=== PATIENT | female | born 1955 | race Asian ===

== ENCOUNTER 2017-07-31 13:32 | Outpatient (CLI) | payer BC | END 2017-07-31 13:33 | disposition home or self-care (01) | LOC: BICULT 13:32 | PROVIDERS: ATTEND Family Medicine | DX: N60.01 Solitary cyst of right breast; R92.8 Other abnormal and inconclusive findings on diagnostic imaging of breast ==

== ENCOUNTER 2018-05-12 13:39 | Outpatient (CLI) | payer BC ==
--- NOTE | 2018-05-12 16:20 | ULT ---
RIGHT BREAST ULTRASOUND LIMITED: History: 62-year-old female presents for follow up evaluation of the right breast at 3 o'clock. FINDINGS: In the 3 o'clock region of the right breast is again noted to be a cyst measuring 0.8 x 1.5 x 0.6 cm in size, stable from the prior study of 12-24-16. This corresponds to the area of parenchymal density asymmetry at 3 o'clock on mammogram. IMPRESSION: Stable cyst in the right breast 3 o'clock 2 cm from the nipple. This corresponds to the parenchymal d ensity asymmetry on mammogram. BIRADS category 2 - benign findings. Continued annual follow up mammography. POS: OFF
== END 2018-05-12 13:40 | disposition home or self-care (01) ==
LOC: BICMAMMO 13:39
PROVIDERS: ATTEND Family Medicine
DX: R92.8 Other abnormal and inconclusive findings on diagnostic imaging of breast (principal); N64.89 Other specified disorders of breast; N60.01 Solitary cyst of right breast
CPT/HCPCS: 77066; G0279

== ENCOUNTER 2019-07-05 17:50 | Inpatient (IN) | payer BC ==
[2019-07-05] MEDS ORDERED: Acetaminophen 325 MG TAB PO PRN (18:00)
[2019-07-05] MEDS ORDERED: Ondansetron PF 4 MG/2 ML Vial IVP PRN (18:00)
[2019-07-05] MEDS ORDERED: Labetalol HCl 100 MG/20 ML VIAL SLOW IVP PRN (18:00)
[2019-07-05] MEDS ORDERED: niCARdipine 25 MG in Sodium Chloride 0.9% 250 ML 240 ML IVPB PRN (18:00)
[2019-07-05] MEDS ORDERED: Acetaminophen/Codeine 30-300mg Tablet PO PRN (18:24)
[2019-07-05 18:43] VITALS: BMI 25.1
[2019-07-05 18:45] LABS: #Basophils 0.1 thou/uL (0.0-0.2); #Lymphocytes 1.1 thou/uL (1.20-3.40); #Monocytes 0.2 thou/uL (0.11-0.59); #Neutrophils 6.6 thou/uL (1.40-6.50); %Basophils 0.7 % (0.0-1.0); %Eosinophils 0.3 % (0.0-10.0); %Lymphocytes 13.4 % (21.0-51.0); %Monocytes 2.8 % (0.0-10.0); %Neutrophils 82.8 % (42.0-75.0); Hemoglobin 15.9 g/dL (12.0-16.0); Mean Corpuscular HGB CONC 34.7 g/dL (32.0-36.0); Mean Corpuscular Hemoglobin 33.3 pg (27.0-31.0); Mean Platelet Volume 7.4 fL (7.4-10.4); Platelet Count 255 thou/uL (130-400); RBC Distribution Width 10.6 % (11.5-14.5); Red Blood Cell (RBC) Count 4.76 mill/uL (4.20-5.40); White Blood Cell (WBC) Count 7.9 thou/uL (4.8-10.8)
[2019-07-05 18:51] LABS: INR-International Normal Ratio 0.9; PTT 30.5 SEC (22.9-36.1); Prothrombin Time 12.1 SEC (12.0-14.7)
[2019-07-05 19:05] LABS: Anion Gap 11 mmol/L (10-20); BUN (Urea Nitrogen) 10 mg/dL (9.8-20.1); Calc. Creatinine Clearance 87 mL/min (70-130); Calcium 9.7 mg/dL (7.8-10.44); Carbon Dioxide 26 mmol/L (23-31); Chloride 108 mmol/L (98-107); Estimated GFR-MDRD 88; Glucose 103 mg/dL (80-115); Potassium 3.7 mmol/L (3.5-5.1); Sodium 141 mmol/L (136-145)
--- NOTE | 2019-07-05 20:22 | MRI ---
MR angiogram of the head: 07/05/2019 COMPARISON: None HISTORY: Acute intracranial hemorrhage TECHNIQUE: 3-D noncontrast enhanced time of flight MR angiography of the head obtained. FINDINGS: No prior imaging is available. Thus, the nature of the patient's intracranial hemorrhage is uncertain. Antegrade blood flow is noted within the imaged distal vertebral arteries. The basilar artery and its branches appear patent with no saccular aneurysm, high-grade stenosis, or vascular occ lusion involving the posterior circulation. Distal branches of bilateral posterior cerebral arteries are not well assessed. The imaged extracranial ICA appears patent bilaterally. The M1 segment appears patent bilaterally and the MCA bifurcation appears within normal limits. The A 1 segment appears unremarkable bilaterally. The region of the anterior communicating artery and the distal VICKY branches appear grossly unremarkable. No central vascular occlusion, high-grade stenosis, or saccular aneurysm. Detailed assessment of the distal VICKY and MCA branches is somewhat technically limited. IMPRESSION: No acute findings. Please see above discussion.
--- NOTE | 2019-07-05 20:33 | MRI ---
Brain MRI with and without contrast: 07/05/2019 COMPARISON: None HISTORY: Intracranial hemorrhage TECHNIQUE: Multiplanar multisequence MR imaging of the brain is obtained with and without contrast FINDINGS: The diffusion weighted imaging demonstrates no evidence for acute infarction. There is a intra-axial lesion within the posterior left frontoparietal region at the level of the jennifer angie measuring 2.5 x 5.0 cm. It demonstrates blooming artifact peripherally on the gradient echo imaging, consistent with intracranial hemorrhage. There is a small amount of surrounding vasogenic ed geoff. The postcontrast imaging demonstrates no associated enhancing lesion. The imaged paranasal sinuses/mastoid air cells appear grossly unremarkable. There is questionable trace posterior subdural blood bilaterally in the parietal regions versus artif act. Head CT would be the study of choice to assess for possible trace amount of subdural blood bilaterally. There are a few scattered foci of increased T2/FLAIR signal within the subcortical white matter near the vertex in the left frontal region. Regional bone marrow signal intensity appears grossly unremarkable. Arterial flow voids at the axial level of the skull base appear unremarkable on the T2-weighted imagi ng. IMPRESSION: Intra-axial hematoma near the vertex posteriorly on the left. No associated enhancing mas s lesion. Recommend follow-up MRI with and without contrast in 3-4 weeks following resolution of the hematoma to evaluate for an underlying obscured lesion. There is questionable trace subdural blood in the posterior parietal regions versus artifact for whic h CT examination of the head may be beneficial for further assessment.
--- NOTE | 2019-07-06 03:36 | HP ---
HISTORY OF PRESENT ILLNESS: The patient is a 64-year-old female with a history of hyperlipidemia, otherwise healthy, who presented to the [facility] Emergency Department on 07/05/2019 for acute onset right-sided weakness. The patient reports she was getting out of shower around 1400 this afternoon when she developed initially some sensation changes in the right upper extremity, which progressed to significant right-sided weakness RUE>RLE. She was evaluated with a noncontrast head CT upon arrival to the emergency department and found to have a moderate-size left upper cerebral acute intracranial hemorrhage. She denies any recent trauma. Does not take any blood thinners or chen-xfx-[id number] aspirin and was not hypertensive. I visited the patient at the bedside. She is awake, alert, and had good strength on the left side. She had noted dense right-sided hemiparesis in the right upper extremity greater than right lower extremity. PAST MEDICAL HISTORY: Hyperlipidemia. PAST SURGICAL HISTORY: Prior cervical fusion. SOCIAL HISTORY: The patient lives at home. She is . She does not smoke , drink, or use any drugs. ALLERGIES: SHE HAS NO KNOWN DRUG ALLERGIES. CURRENT MEDICATION LIST: Atorvastatin 10 mg tab one tablet p.o. daily. REVIEW OF SYSTEMS: Per HPI. PHYSICAL EXAMINATION: GENERAL: On exam, the patient is sitting comfortably in the bed, in no acute distress. HEENT: Head, normocephalic and atraumatic. Eyes, PERRLA. Extraocular movements intact. ENT, oral mucosa is pink, intact, and moist. She has normal voice. No dysarthria is noted. NECK: Nontender. Free active range of motion. No meningismus or nuchal rigidity. CARDIAC: Regular rate and rhythm. MUSCULOSKELETAL: Symmetric pulses. No obvious deformities. She has a dense right-sided neck paresis with no motor function appreciated in the right upper extremity and significant drift in the right lower extremity. NEUROLOGIC: A and O x4. No cranial nerve deficits. Significant right-sided weakness as noted in the musculoskeletal exam. ASSESSMENT AND PLAN: This is a 64-year-old otherwise healthy female with acute onset left-sided cerebral intracranial hemorrhage of unclear etiology. She has a dense right-sided hemiparesis, but there are otherwise no other neurologic deficits appreciated. We will plan to admit her to the ICU for close monitoring, q.1 neuro checks. Head of the bed should be elevated to 30 degrees and I will consult the Medicine Service to assist with medical management. We will plan to evaluate this acute intracranial hemorrhage further with MRI of the brain with and without contrast to rule out any underlying lesion as well as MRI and MRV of the brain to rule out any vascular abnormality or venous sinus thrombosis. I have discussed this plan with Dr. Layton, who is in agreement. Job ID: [id number] MTDD
--- NOTE | 2019-07-06 08:51 | MRI ---
MR venogram of the head: 07/06/2019 COMPARISON: None HISTORY: Intra-axial hemorrhage near the vertex posteriorly on the left TECHNIQUE: Noncontrast enhanced [id number] MR angiography of the brain obtained. FINDINGS: The transverse sinus is not visualized on the left. 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 The sagittal sinus, region of the torcula, right transverse sinus, right internal jugular vein, and b ilateral sigmoid sinuses appear patent. IMPRESSION: No evidence for dural venous sinus thrombosis. 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
[2019-07-06] MEDS ORDERED: Prevnar 13-Val Conj/PF 0.5 ML SYRINGE IM ONE (09:00)
[2019-07-06] MEDS ORDERED: hydrALAZINE 25 MG TAB PO PRN (11:50)
--- NOTE | 2019-07-06 13:09 | PRG ---
DATE OF SERVICE: 07/06/2019 The patient is seen and examined. I agree with Alise Maloney PA-C, evaluation on 07/05/2019. The patient is a 64-year-old woman, in excellent health, who had spontaneous onset of right hemiparesis. She was found to have a left frontoparietal hematoma. The patient currently has a right hemiparesis proximal greater than distal musculature and arm greater than leg. She does not seem to have any language dysfunction. The patient has had CT, MRI, and MRA. The hematoma is relatively large, but not causing any life-threatening mass effect. No surgical intervention is planned. No etiology was identified on the MRI with contrast or the MRA. With respect to etiology, we will get an MRV and an echocardiogram. If these are negative, we will do followup MRI in several weeks and consider conventional angiography down the road. We will transfer the patient to the floor and begin focus on rehab and recovery at this point. Job ID: [id number]
--- NOTE | 2019-07-06 13:19 | CON ---
DATE OF CONSULTATION: PRIMARY CARE PHYSICIAN: Marianne Tim MD REASON FOR ADMISSION: Intracranial hemorrhage. HISTORY OF PRESENT ILLNESS: Ms. Whitfield is a very pleasant 64-year-old female, who has a history of hyperlipidemia. She has no significant other past medical history. She was feeling well until yesterday evening. She had taken a shower and gotten out and then suddenly noticed that she was having difficulty with her balance and her right side felt weak. She called her for help and he immediately called 911 to have her brought to the hospital. Prior to that, she denied having any symptoms such as chest pain or shortness of breath. She denied any facial droop and she also denied any chest pain. When she arrived at the ER, she was evaluated and had an MRI of the brain, which revealed an intra-axial hematoma near the vertex on the left. There was no enhancing mass lesions. She was admitted to the Neurosurgery Service. By the time we see her the following day, she is improving with regard to her right-sided weakness and denies any headache or feeling dizzy and essentially has no complaints. REVIEW OF SYSTEMS: All systems were reviewed and are negative except for that mentioned in the history of present illness. PAST MEDICAL HISTORY: Significant for hyperlipidemia. PAST SURGICAL HISTORY: She had a cervical fusion about 14 years ago, x2. She had a knee meniscus repair, kidney stone removal about 2 years ago. ALLERGIES: NO KNOWN DRUG ALLERGIES. SOCIAL HISTORY: She is , has 2 children. 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 She denies any smoking or alcohol use. FAMILY HISTORY: Significant for heart disease in her father and cerebrovascular disease as well. CURRENT MEDICATIONS: Include; 1. Atorvastatin 10 mg p.o. daily. 2. Vitamin D3 of 5000 international units daily. PHYSICAL EXAMINATION: GENERAL: She is alert and oriented. She appears to be in no acute distress. She is well developed and well nourished. VITAL SIGNS: Blood pressure was 129/74, heart rate 70, respiratory rate is 17, and she is afebrile. HEENT: Pupils are equal, round, and reactive. Extraocular muscles are intact. Her sclerae are anicteric. Throat; no erythema, no exudates. NECK: No adenopathy. No bruits. LUNGS: Clear to auscultation. There is no wheezing. No rales. No rhonchi. CARDIOVASCULAR: She has a normal S1 and S2. There is no S3 or S4. No murmurs, clicks, or rubs. ABDOMEN: Soft. It is nontender and nondistended. Positive for bowel sounds. No rebound. No guarding. No organomegaly. EXTREMITIES: There is no clubbing or cyanosis. No edema. No calf tenderness. NEUROLOGIC: She does have some weakness in her right upper extremity as opposed to her left and the same on the right lower extremity, but it is still 5/5 and the cranial nerves again are intact. SKIN AND INTEGUMENT: No skin changes. No rash. LABORATORY DATA: Lab results are reviewed. INR 0.9. Sodium 141, potassium 3.7, chloride 108, CO2 is 26, BUN of 10, and creatinine 0.68. CBC; the white blood cell count 7.9, hemoglobin 15.9, hematocrit is 45.7, and platelet count is 255. ASSESSMENT AND PLAN: 1. Ms. Tamar Whitfield is a pleasant 64-year-old female, who is being admitted for acute intracranial hemorrhage. The etiology of which is currently unclear. MRI of the brain as well as MR angiogram did not show any mass lesion or evidence of aneurysm. She is a little bit young for amyloid angiopathy. The plan I believe, she can be moved out of the ICU at this time as her blood pressure has remained stable. We will have p.r.n. hydralazine available as needed. No anticoagulation. 2. Hyperlipidemia. This appears to be clinically stable and we will actually hold off on her Lipitor until her bleeding is known to be stable. Continue PT and OT and further recommendations to follow. Job ID: [id number]
--- NOTE | 2019-07-06 14:45 | CON ---
DATE OF CONSULTATION: 07/06/2019 SERVICE: Pulmonary Medicine. REASON FOR CONSULTATION: ICU patient. HISTORY OF PRESENT ILLNESS: The patient is a 64-year-old female with past medical history significant for hypertension. She was in her usual state of health when she experienced a sudden onset of neurologic disturbance. She presented to the emergency department, and a bleed in the brain was identified. Over the course of the last 24 hours, she has actually had a slight improvement in neurologic function. Originally, she had profound weakness in her upper and lower extremity, complete lack of sensation. She is starting to have some sensation creep back in and the weakness is improving, although she is still quite clumsy. Her weakness is more central compared to peripheral. Otherwise, nursing reports no events overnight. Prior to this event happening, she was in her usual state of health without complaints of fevers, chills, nausea, vomiting, or diarrhea. She did not have any recent headaches. PAST MEDICAL HISTORY: 1. Hypertension. 2. Dyslipidemia. 3. Intracranial hemorrhage. PAST SURGICAL HISTORY: Cervical fusion. SOCIAL HISTORY: Negative for alcohol, tobacco, or illicit drug use. She has no exposure to chemicals, dust, asbestos, or tuberculosis. FAMILY HISTORY: Noncontributory. ALLERGIES: NO KNOWN DRUG ALLERGIES. MEDICATIONS: List of her inpatient medications was reviewed. No specific updates were made at this time. REVIEW OF SYSTEMS: General, head, ears, eyes, nose, throat, cardiovascular, respiratory, GI, , musculoskeletal, neurologic, and skin is negative except as mentioned in the HPI. PHYSICAL EXAMINATION: VITAL SIGNS: Afebrile, pulse 78, blood pressure 111/65, respirations 17, and saturation 97% on room air. GENERAL: The patient is awake and alert, in no apparent distress. LUNGS: Good air entry bilaterally. There is no prolonged expiratory phase, wheezing, crackles, or rhonchi present. HEART: Normal rate, regular. ABDOMEN: Soft, nontender, and nondistended. Bowel sounds are positive. MUSCULOSKELETAL: No cyanosis or clubbing. No pitting in bilateral lower extremities. NEUROLOGIC: She has a lack of sensation in upper and lower extremity on the right side. It also involves the right side of her face. That being said, her motor movement of the face and distal muscles are quite good. She has 5/5 strength in the right hand, and 4/5 strength in the right foot. That being said, more proximally, her shoulders are 3/5 strength, and her hip flexor is 3/5 strength. LABORATORY DATA: CBC is unremarkable. INR 0.9. Basic metabolic profile is also unremarkable. IMAGING DATA: 1. MRA of the brain demonstrates no evidence for dural venous sinus thrombosis. There is a left transverse sinus, which is nonvisualized, likely on the basis of congenital hypoplasia given the findings on the postcontrast MRI. 2. MRI of the brain demonstrates intraparenchymal hemorrhage near the vertex posteriorly on the left. Trace subdural blood was questioned. ASSESSMENT: 1. Intraparenchymal hemorrhage. 2. Dyslipidemia. 3. Hypertension. DISCUSSION AND PLAN: 1. We will try to keep her blood pressure under systolics of 140. I will watch her neurologically over the next 24 hours. If she meets criteria, she can be considered for transition to Neurologic Unit once cleared by Neurosurgery. We will likely be following imaging through time to make certain if this lesion does not evolve. Critical Care will follow in this location, but when she transitions to the floor, I will sign off. It is reassuring that she is already regaining some neurologic function. Hopefully, this trend will continue over the next 24 to 48 hours. 70 minutes have been devoted to this patient in various activities. I personally reviewed all imaging studies and laboratory data noted within this document. For fifty percent of this time, I was interacting with the patient at the bedside or coordinating care with the care team. For the remainder of the time I was immediately available to the patient in the hospital unit. Job ID: [id number] MTDD
--- NOTE | 2019-07-07 07:57 | PRG ---
DATE OF SERVICE: 07/07/2019 The patient is now 2 days out from acute left frontal intracranial hemorrhage. She was monitored yesterday or today in the ICU and had an MRI, MRA, and MRV done, which were negative for underlying lesion, vascular abnormality, or venous sinus thrombosis. She also had an echocardiogram done, which was negative for acute abnormalities. She is actually improving from neurologic standpoint with increased strength on the right side and was transitioned from the ICU to the stroke floor yesterday. On exam this morning, the patient awakens easily. She is oriented x3. She has 5/5 strength on the left, but still have notable weakness and some drift on the right upper and right lower extremity. Right upper extremity is weaker than the right lower extremity. She is also noted to have some intermittent twitching of the right hand. I witnessed intermittent twitching in the right hand and feels that this could represent partial seizure. We will go ahead and start her on 500 mg p.o. of Keppra b.i.d. I will ask Neurology for their opinion. We will have her continue to work with Physical Therapy and work on transitioning towards inpatient rehab in the near future. Job ID: [id number]
[2019-07-07] MEDS ORDERED: Polyethylene Glycol 3350 17 GM Packet PO PRN (08:36)
[2019-07-07] MEDS ORDERED: levETIRAcetam 500 MG TAB PO SCH (09:00)
[2019-07-07] MEDS: Atorvastatin Calcium 10 MG TAB PO SCH (10:10)
[2019-07-07] MEDS: Docusate 100 MG CAP PO SCH ×2 (10:10→21:34)
--- NOTE | 2019-07-07 13:19 | PRG ---
DATE OF SERVICE: 07/07/2019 The patient was examined. She was alert and in a chair. Her verbal seems completely unaffected. She continues to have the right-sided proximal weakness, arm greater than leg. Additional tests yesterday including MR venogram was negative. An echocardiogram was also performed and has been reported to me as negative, although the printed report is not available in the computer. At this point, no further testing for etiology is appropriate. The patient can be mobilized and will likely need inpatient rehab and we will put in the rehab screen. We will talk to the [facility] about taking over her primary and I will arrange outpatient followup in 4 to 6 weeks with repeat MRI. If this is negative, we will consider conventional angiography at that time. Discussed with the patient and . Job ID: [id number]
--- NOTE | 2019-07-07 13:36 | PDOC.HOSPP ---
- Subjective Encounter Date: 07/07/19 Encounter Time: 13:34 Subjective: Ms. Whitfield was seen today in follow-up of acute ICH. She does not feel much different from yesterday. She continues to have some right sided weakness. - Objective Vital Signs & Weight: Vital Signs (12 hours) Temp Pulse Pulse Pulse Resp BP BP 07/07/19 11:53 98 F 66 16 07/07/19 09:01 65 65 115/56 L 105/54 L 07/07/19 08:11 98.1 F 62 18 07/07/19 04:00 97.7 F 63 16 BP Pulse Ox 07/07/19 11:53 130/60 94 L 07/07/19 09:01 07/07/19 08:11 110/62 96 07/07/19 04:00 106/56 L 96 Weight Weight 138 lb 6.4 oz Most Recent Monitor Data Heart Rate from ECG 82 NIBP 108/70 NIBP BP-Mean 82 Respiration from ECG 16 SpO2 96 I&O: 07/06/19 07/07/19 07/08/19 06:59 06:59 06:59 Intake Total 225 1750 Output Total 850 650 Balance -625 1100 Result Diagrams: 07/05/19 18:38 07/05/19 18:38 Hospitalist ROS - Medication Medications: Active Medications Generic Name Dose Route Start Last Admin Trade Name Freq PRN Reason Stop Dose Admin Atorvastatin Calcium 10 mg 07/07/19 09:00 07/07/19 10:10 Lipitor PO 10 mg DAILY SADIA Administration Cholecalciferol 5,000 units 07/07/19 09:00 07/07/19 10:10 Vitamin D3 PO 5,000 units DAILY SADIA Administration Docusate Sodium 100 mg 07/07/19 09:00 07/07/19 10:10 Colace PO 100 mg BID SADIA Administration Levetiracetam 500 mg 07/07/19 09:00 07/07/19 10:10 Keppra PO 500 mg BID SADIA Administration Polyethylene Glycol 17 gm 07/07/19 08:36 07/07/19 10:11 Miralax PO 17 gm DAILYPRN PRN Administration Constipation - Exam Eye: PERRL Heart: RRR, no murmur, no gallops, no rubs, normal peripheral pulses, irregular Respiratory: CTAB, no wheezes, no rales, no ronchi, normal chest expansion, no tachypnea Gastrointestinal: soft, non-tender, non-distended, normal bowel sounds, no palpable masses, no hepatomegaly Extremities: no cyanosis, no edema Neurological: cranial nerve grossly intact (+ right upper and lower extremity weakness) Hosp A/P (1) ICH (intracerebral hemorrhage) Code(s): I61.9 - NONTRAUMATIC INTRACEREBRAL HEMORRHAGE, UNSPECIFIED Status: Acute (2) Dyslipidemia Code(s): E78.5 - HYPERLIPIDEMIA, UNSPECIFIED Status: Acute - Plan * Acute ICH- unknown etiology she has right sided weakness * Dyslipdemia- will re-start Lipitor * Right arm shaking- ? seizure- Keppra was started * Continue PT/OT
--- NOTE | 2019-07-07 20:25 | CON ---
DATE OF CONSULTATION: 07/07/2019 CONSULTING PHYSICIAN: Hospitalist Service. IMPRESSION: Probable simple partial seizure activity secondary to underlying intracranial hemorrhage. PLAN: Increase Keppra to 750 mg twice a day. HISTORY OF PRESENT ILLNESS: Ms. Whitfeild is a 64-year-old female came in with acute onset of right-sided weakness. Her CT and MRI revealed an intracranial hemorrhage in the left frontoparietal intraparenchymal region. Her MRV and MRA were both unremarkable. Her echocardiogram shows a 55% to 60% ejection fraction. Her blood pressures have been under good control. She has been having some intermittent twitching of the right wrist. This usually is brought on by stimulation such as trying to get her to use the extremity had made it difficult for her to sleep last night due to the uncontrolled twitching. PAST MEDICAL HISTORY: Otherwise, unremarkable. FAMILY HISTORY: Noncontributory. ALLERGIES: NONE. SOCIAL HISTORY: She is . No tobacco or alcohol use. MEDICATIONS LIST: Reviewed. REVIEW OF SYSTEMS: 10-system review of systems is otherwise negative. PHYSICAL EXAMINATION: VITAL SIGNS: Blood pressure 106/66, pulse 63, respirations 16. HEENT: Pupils are equal and reactive. Conjunctivae clear. Oropharynx clear. NECK: Supple. EXTREMITIES: No cyanosis, clubbing, or edema. NEUROLOGIC: She was alert and cooperative. Her speech is fluent and clear. There is no facial asymmetry. She had antigravity strength in the right arm with diminished rapid alternating movement. Stimulation elicited in a rhythmic extension twitch in the right hand that lasted for several minutes and resolved spontaneously. It was persistent even with strong handgrip. Gait was not tested. Sensation was intact to light touch. LABORATORY DATA: Laboratory studies were reviewed. SUMMARY: A middle-age woman with an intracerebral hemorrhage and some secondary focal seizure activity. I will increase her Keppra to 750 mg twice a day. We will follow up and see how she responds. Job ID: [id number]
[2019-07-07] MEDS: levETIRAcetam 500 MG TAB PO SCH (21:34)
[2019-07-08 08:30] LABS: Anion Gap 11 mmol/L (10-20); BUN (Urea Nitrogen) 12 mg/dL (9.8-20.1); Calc. Creatinine Clearance 84 mL/min (70-130); Calcium 9.3 mg/dL (7.8-10.44); Carbon Dioxide 25 mmol/L (23-31); Chloride 106 mmol/L (98-107); Estimated GFR-MDRD 86; Glucose 93 mg/dL (80-115); Potassium 3.8 mmol/L (3.5-5.1); Sodium 138 mmol/L (136-145)
[2019-07-08 08:35] LABS: #Eosinphils 0.2 thou/uL (0.0-0.7); #Lymphocytes 1.7 thou/uL (1.20-3.40); #Monocytes 0.5 thou/uL (0.11-0.59); #Neutrophils 4.5 thou/uL (1.40-6.50); %Basophils 0.4 % (0.0-1.0); %Eosinophils 3.1 % (0.0-10.0); %Lymphocytes 24.9 % (21.0-51.0); %Monocytes 6.9 % (0.0-10.0); %Neutrophils 64.7 % (42.0-75.0); Hemoglobin 15.4 g/dL (12.0-16.0); Mean Corpuscular HGB CONC 34.9 g/dL (32.0-36.0); Mean Corpuscular Hemoglobin 33.6 pg (27.0-31.0); Mean Corpuscular Volume 96.3 fL (78.0-98.0); Mean Platelet Volume 7.5 fL (7.4-10.4); Platelet Count 225 thou/uL (130-400); RBC Distribution Width 10.6 % (11.5-14.5); Red Blood Cell (RBC) Count 4.59 mill/uL (4.20-5.40)
[2019-07-08] MEDS: Atorvastatin Calcium 10 MG TAB PO SCH (08:48)
[2019-07-08] MEDS: Docusate 100 MG CAP PO SCH ×2 (08:48→22:24)
[2019-07-08] MEDS: levETIRAcetam 500 MG TAB PO SCH ×3 (08:48→23:27)
--- NOTE | 2019-07-08 14:17 | PDOC.HOSPP ---
- Subjective Encounter Date: 07/08/19 Encounter Time: 14:15 Subjective: Ms. Whitfield was seen today in follow-up of ICH. She rested better last night. She does not have any new complaints. - Objective Vital Signs & Weight: Vital Signs (12 hours) Temp Pulse Pulse Pulse Resp BP BP 07/08/19 11:47 98 F 69 16 07/08/19 11:11 71 65 120/56 L 101/53 L 07/08/19 07:49 07/08/19 07:30 97.6 F 58 L 16 07/08/19 03:48 97.8 F 64 16 BP Pulse Ox 07/08/19 11:47 120/56 L 96 07/08/19 11:11 07/08/19 07:49 94 L 07/08/19 07:30 110/57 L 94 L 07/08/19 03:48 102/57 L 95 Weight Weight 138 lb 6.4 oz Most Recent Monitor Data Heart Rate from ECG 82 NIBP 108/70 NIBP BP-Mean 82 Respiration from ECG 16 SpO2 96 I&O: 07/07/19 07/08/19 07/09/19 06:59 06:59 06:59 Intake Total 1750 1190 Output Total 650 1100 Balance 1100 90 Result Diagrams: 07/08/19 07:54 07/08/19 07:54 Hospitalist ROS - Medication Medications: Active Medications Generic Name Dose Route Start Last Admin Trade Name Freq PRN Reason Stop Dose Admin Atorvastatin Calcium 10 mg 07/07/19 09:00 07/08/19 08:48 Lipitor PO 10 mg DAILY SADIA Administration Cholecalciferol 5,000 units 07/07/19 09:00 07/08/19 08:48 Vitamin D3 PO 5,000 units DAILY SADIA Administration Docusate Sodium 100 mg 07/07/19 09:00 07/08/19 08:48 Colace PO 100 mg BID SADIA Administration Levetiracetam 750 mg 07/07/19 21:00 07/08/19 08:48 Keppra PO 750 mg BID SADIA Administration Polyethylene Glycol 17 gm 07/07/19 08:36 07/07/19 10:11 Miralax PO 17 gm DAILYPRN PRN Administration Constipation - Exam Eye: PERRL Heart: RRR, no murmur, no gallops, no rubs Respiratory: CTAB, no wheezes, no rales, no ronchi, normal chest expansion Gastrointestinal: soft, non-tender, non-distended, normal bowel sounds, no palpable masses Extremities: no cyanosis, no edema Hosp A/P (1) ICH (intracerebral hemorrhage) Code(s): I61.9 - NONTRAUMATIC INTRACEREBRAL HEMORRHAGE, UNSPECIFIED Status: Acute (2) Simple partial seizure disorder Code(s): G40.109 - LOCAL-REL SYMPTC EPI W SIMP PRT SEIZ,NOT NTRCT, W/O STAT EPI Status: Acute (3) Dyslipidemia Code(s): E78.5 - HYPERLIPIDEMIA, UNSPECIFIED Status: Acute - Plan * Acute ICH- unknown etiology with right sided weakness * Her strength is improving * Dyslipdemia-continue Lipitor * Simple partial seizure- continue Keppra * Continue PT/OT * Awaiting Rehab transfer
[2019-07-08] MEDS ORDERED: levETIRAcetam 500 mg/5 ml Oral Solution PO SCH (22:30)
[2019-07-09] MEDS: Atorvastatin Calcium 10 MG TAB PO SCH (08:50)
[2019-07-09] MEDS: Docusate 100 MG CAP PO SCH (08:51)
[2019-07-09] MEDS ORDERED: levETIRAcetam 500 mg/5 ml Oral Solution PO SCH (09:00)
[2019-07-09 11:42] VITALS: TEMP 98
--- NOTE | 2019-07-09 13:50 | PDOC.HOSPP ---
- Subjective Encounter Date: 07/09/19 Encounter Time: 13:48 Subjective: Ms. Whitfield was seen today in follow-up of ICH with right sided weakness. She notes some improvement. She walked 100 ft. with PT. She denies any headache. - Objective Vital Signs & Weight: Vital Signs (12 hours) Temp Pulse Resp BP BP Pulse Ox 07/09/19 11:20 98.0 F 74 18 105/51 L 95 07/09/19 08:35 96 07/09/19 07:26 97.7 F 62 12 112/56 L 96 07/09/19 04:31 98.2 F 60 16 104/59 L 97 Weight Weight 139 lb Most Recent Monitor Data Heart Rate from ECG 82 NIBP 108/70 NIBP BP-Mean 82 Respiration from ECG 16 SpO2 96 I&O: 07/08/19 07/09/19 07/10/19 06:59 06:59 06:59 Intake Total 1190 1020 Output Total 1100 Balance 90 1020 Result Diagrams: 07/08/19 07:54 07/08/19 07:54 Hospitalist ROS - Medication Medications: Active Medications Generic Name Dose Route Start Last Admin Trade Name Freq PRN Reason Stop Dose Admin Atorvastatin Calcium 10 mg 07/07/19 09:00 07/09/19 08:50 Lipitor PO 10 mg DAILY SADIA Administration Cholecalciferol 5,000 units 07/07/19 09:00 07/09/19 08:50 Vitamin D3 PO 5,000 units DAILY SADIA Administration Docusate Sodium 100 mg 07/07/19 09:00 07/09/19 08:51 Colace PO 100 mg BID SADIA Administration Levetiracetam 750 mg 07/09/19 09:00 07/09/19 08:50 Keppra Oral Solution PO 750 mg BID SADIA Administration Polyethylene Glycol 17 gm 07/07/19 08:36 07/07/19 10:11 Miralax PO 17 gm DAILYPRN PRN Administration Constipation - Exam Eye: PERRL, anicteric sclera Heart: RRR, no murmur, no gallops, no rubs, normal peripheral pulses Respiratory: CTAB, no wheezes, no rales, no ronchi, normal chest expansion, no tachypnea Gastrointestinal: soft, non-tender, non-distended, normal bowel sounds, no palpable masses, no hepatomegaly Extremities: no cyanosis, no edema Neurological: no new deficit (Continues with right upper and lower extremity weakness- improving) Hosp A/P (1) ICH (intracerebral hemorrhage) Code(s): I61.9 - NONTRAUMATIC INTRACEREBRAL HEMORRHAGE, UNSPECIFIED Status: Acute (2) Simple partial seizure disorder Code(s): G40.109 - LOCAL-REL SYMPTC EPI W SIMP PRT SEIZ,NOT NTRCT, W/O STAT EPI Status: Acute (3) Dyslipidemia Code(s): E78.5 - HYPERLIPIDEMIA, UNSPECIFIED Status: Acute - Plan * Acute ICH- unknown etiology with right sided weakness * Her strength continues to improve * Dyslipdemia-continue Lipitor * Simple partial seizure- better- continue Keppra * Continue PT/OT * She has improved for Rehab by Dr. Diamond, now awaiting Insurance approval.
[2019-07-09 15:53] VITALS: BP 116/56
--- NOTE | 2019-07-09 22:16 | DIS ---
DATE OF ADMISSION: 07/05/2019 DATE OF DISCHARGE: 07/09/2019 PRIMARY CARE PHYSICIAN: Marianne Tim MD DISCHARGE DIAGNOSES: 1. Intracranial hemorrhage, etiologies unknown. 2. Dyslipidemia. 3. Simple partial seizure. DISCHARGE MEDICATIONS: 1. Keppra 750 mg p.o. b.i.d. 2. Apresoline 25 mg p.o. t.i.d. only as needed for elevated blood pressure systolic greater than 145. 3. Vitamin D3 of 5000 units daily. 4. Atorvastatin 10 mg daily. IMAGING DURING THE HOSPITAL STAY: The patient had an MRI of the brain, which revealed an intra-axial hematoma near the vertex posteriorly on the left. There was no associated enhancing mass. The patient had an MR angiogram of the brain showing no evidence of any dural venous sinus thrombosis. The left transverse sinus was nonvisualized. 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 The patient had an echocardiogram and the ejection fraction was estimated at 55% to 60%. Normal left ventricular size and motion. CODE STATUS: Full code. ALLERGIES: NO KNOWN DRUG ALLERGIES. HOSPITAL COURSE: Ms. Whitfield is a pleasant 64-year-old female, who developed sudden onset of right-sided weakness after taking a shower. There was no trauma or fall. She came to the emergency room and was found to have an intracerebral hemorrhage, the etiology of which is unknown. There is no evidence of mass lesion nor of an aneurysm. She was normotensive. During the course of her admission, the weakness in the right upper and lower extremity did improve. However, she still had significant deficits. She also had fairly severe difficulty transferring. For this reason, she is going to be discharged to the inpatient rehab facility and this is being done on 07/09/2019 and outpatient followup will be determined post discharge from rehab. Job ID: [id number]
== END 2019-07-09 19:50 | DRG 65 ==
LOC: CCU 17:50 → 2SE 07-06 22:26
PROVIDERS: ADMIT Neurological Surgery; ATTEND Internal Medicine
DX: I61.8 Other nontraumatic intracerebral hemorrhage (principal); G81.91 Hemiplegia, unspecified affecting right dominant side; G40.109 Localization-related (focal) (partial) symptomatic epilepsy and epileptic syndromes with simple partial seizures, not intractable, without status epilepticus; E78.5 Hyperlipidemia, unspecified; Z98.1 Arthrodesis status
CPT/HCPCS: 36415; 70544; 70553; 80048; 85025; 85610; 85730; 93306

== ENCOUNTER 2019-08-16 08:32 | Outpatient (CLI) | payer BC ==
--- NOTE | 2019-08-16 10:22 | MRI ---
Exam: BRAIN MRI WITH AND WITHOUT CONTRAST: HISTORY: Follow-up intracranial hemorrhage. Previous hemorrhagic stroke. COMPARISON: 07/05/2019 FINDINGS: Gradient echo sequence: Peripheral hemosiderin deposition in a region of previously noted intraparenc hymal hemorrhage along the posterior left frontal lobe, near the vertex. There is intrinsic peripheral T1 hyperintensity with associated central T2 and FLAIR hyperintensity involving the hemato ma. There is been interval clot retraction. Hematoma currently measures 1.6 x 4.0 cm. Previously, hematoma measures 2.5 x 5.0 cm. The degree of adjacent FLAIR hyperintensity has decreased suggesting resolution of cytotoxic edema. Previously noted subarachnoid hemorrhage is no longer evident. Calvarium: Appropriate T1 marrow signal intensity Midline brain parenchyma: Unremarkable Cerebrum:Beyond the left cerebral hematoma, no additional intraparenchymal abnormalities. No parenchy mal masses. No significant midline shift. Basilar cisterns are patent. No significant T2 or FLAIR white matter hyperintensities. Ventricles: No evidence of hydrocephalus. Sinuses and mastoid air cells: Adequate aeration Diffusion: Central arterial flow is maintained. Absent restricted diffusion. Postcontrast images:Intrinsic peripheral T1 hyperintensity limits evaluation at the level of the ela ronald. No abnormal pathologic enhancement of the cerebrum or cerebellum. IMPRESSION: 1. Intra-axial or hematoma near the vertex involving the left frontal lobe. No associated enhancing m ass. Intrinsic T1 hyperintensity along the periphery of the hematoma limits evaluation. 2. Interval clot retraction. Residual hematoma does remain. Continued surveillance is recommended. Transcribed Date/Time: 08/16/2019 11:00 AM
== END 2019-08-16 08:33 | disposition home or self-care (01) ==
LOC: SCSMRI 08:32
PROVIDERS: ATTEND Neurological Surgery
DX: I62.9 Nontraumatic intracranial hemorrhage, unspecified (principal)
CPT/HCPCS: 70553

== ENCOUNTER 2020-05-16 12:41 | Outpatient (CLI) | payer BC ==
--- NOTE | 2020-05-31 08:22 | EEG ---
DATE OF SERVICE: DESCRIPTION OF THE RECORD: Waking background was a medium amplitude 10 hertz alpha frequency. The patient appeared to be awake throughout study. Photic stimulation was unremarkable. No epileptiform features were seen. IMPRESSION: This is a normal awake EEG. Job ID: [id number]
== END 2020-05-16 12:42 | disposition home or self-care (01) ==
LOC: EEG 12:41
PROVIDERS: ATTEND Nurse Practitioner Acute Care
DX: R56.9 Unspecified convulsions (principal)
CPT/HCPCS: 95816

== ENCOUNTER 2021-06-01 14:02 | Outpatient (CLI) | payer BC | END 2021-06-01 14:03 | disposition home or self-care (01) | LOC: RAD 14:02 | PROVIDERS: ATTEND Urology | DX: N20.0 Calculus of kidney (principal) | CPT/HCPCS: 74018 ==

== ENCOUNTER 2021-07-02 15:01 | Outpatient (CLI) | payer BC ==
[2021-07-02 16:58] LABS: Bilirubin Neg (Negative); Blood, Urine 25 (Negative); Clarity Clear (Clear); Glucose, Urine (Dipstick) Normal (Negative); Ketone, Urine Negative (Negative); Leukocyte Negative (Negative); Nitrite Negative (Negative); Protein, Urine (Dipstick) Negative (Neg-Trace); Specific Gravity, Urine 1.005 (1.002-1.036); Urobilinogen Normal mg/dL (Less than 2)
[2021-07-02 16:59] LABS: Mean Corpuscular Hemoglobin 32.2 pg (27.0-33.0); Mean Corpuscular Volume 94.8 fl (81.6-98.3); Mean Platelet Volume 10.3 fl (7.4-10.4); Platelet Count 258 10x3/uL (150-450); Red Blood Cell (RBC) Count 4.97 10x6/uL (3.90-5.03); White Blood Cell (WBC) Count 7.1 10x3/uL (3.5-10.5)
[2021-07-02 17:09] LABS: Bacteria/HPF None Seen HPF (None Seen); Squamous Epithelial 0-3 HPF (0-3); WBC/HPF 0-3 HPF (0-3)
[2021-07-02 17:24] LABS: INR-International Normal Ratio 0.9; PTT 26.8 sec (22.0-33.0)
[2021-07-02 17:26] LABS: Anion Gap 15 mmol/L (10-20); BUN (Urea Nitrogen) 11 mg/dL (9.8-20.1); Calc. Creatinine Clearance 0 mL/min (70-130); Calcium 9.7 mg/dL (7.8-10.44); Carbon Dioxide 26 mmol/L (23-31); Chloride 106 mmol/L (98-107); Glucose 87 mg/dL (80-115); Potassium 3.9 mmol/L (3.5-5.1); Sodium 143 mmol/L (136-145)
[2021-07-03 03:28] LABS: SARS-CoV-2 PCR by NAA Not Detected (NotDetected)
== END 2021-07-02 15:02 | disposition home or self-care (01) ==
LOC: LABBT 15:01
PROVIDERS: ATTEND Family Medicine
DX: Z01.818 Encounter for other preprocedural examination (principal); N20.0 Calculus of kidney; I69.251 Hemiplegia and hemiparesis following other nontraumatic intracranial hemorrhage affecting right dominant side; G40.909 Epilepsy, unspecified, not intractable, without status epilepticus; Z20.822 Contact with and (suspected) exposure to COVID-19
CPT/HCPCS: 80048; 81001; 85027; 85610; 85730; 87086; 93005; 93010; U0003; U0005

== ENCOUNTER 2021-07-05 06:05 | Day surgery (SDC) | payer BC ==
[2021-07-02 11:43] VITALS: BMI 23.6
[2021-07-05] MEDS ORDERED: Fentanyl 250 MCG/5 ML VIAL ONE (06:50)
[2021-07-05] MEDS ORDERED: B & O ONE (06:50)
[2021-07-05] MEDS ORDERED: Iothalamate Meglumine 60% 50 ML VIAL FS ONE (06:50)
[2021-07-05] MEDS ORDERED: Midazolam HCl 2 mg/2 ml Vial ONE (07:22)
[2021-07-05] MEDS ORDERED: Levofloxacin 500 mg/D5W 100 ml Premix Bag ONE (07:28)
[2021-07-05] MEDS ORDERED: Ondansetron PF 4 MG/2 ML Vial ONE (07:38)
[2021-07-05] MEDS ORDERED: Dexamethasone 20 MG/5 ML VIAL ONE (07:38)
[2021-07-05] MEDS ORDERED: ePHEDrine 50 MG/ML VIAL ONE (07:38)
[2021-07-05] MEDS ORDERED: Oxybutynin 5 MG TAB ONE (10:03)
[2021-07-05] MEDS ORDERED: Phenazopyridine HCl 100 MG TAB ONE (10:03)
== END 2021-07-05 11:00 | disposition home or self-care (01) ==
LOC: SDC 06:05
PROVIDERS: ATTEND Urology
PROC: 0TC48ZZ Extirpation of Matter from Left Kidney Pelvis, Via Natural or Artificial Opening Endoscopic (ICD-10-PCS; principal; 2021-07-05)
PROC: 0T778DZ Dilation of Left Ureter with Intraluminal Device, Via Natural or Artificial Opening Endoscopic (ICD-10-PCS; principal; 2021-07-05)
DX: N20.0 Calculus of kidney (principal); N13.5 Crossing vessel and stricture of ureter without hydronephrosis; I69.251 Hemiplegia and hemiparesis following other nontraumatic intracranial hemorrhage affecting right dominant side; G40.909 Epilepsy, unspecified, not intractable, without status epilepticus; Z79.899 Other long term (current) drug therapy
CPT/HCPCS: 76000; 82365; 88300; C1713; C2617; J1100; J1956; J2250; J2405; J3010; J3490; Q9961-U8